=== PATIENT | female | born 1930 | race Caucasian/White ===

== ENCOUNTER 2016-06-13 14:40 | Outpatient (CLI) | payer OTHER ==
[2016-01-23 07:52] VITALS: BP 198/116
== END 2016-06-13 14:42 ==
LOC: CARD 14:40
PROVIDERS: ATTEND Internal Medicine Cardiovascular Disease
DX: I50.9 Heart failure, unspecified (principal)
CPT/HCPCS: G0463

== ENCOUNTER 2016-08-16 10:50 | Outpatient (CLI) | payer OTHER ==
[2016-01-23 07:52] VITALS: BP 198/116
== END 2016-08-16 10:52 ==
LOC: POD 10:50
PROVIDERS: ATTEND Podiatrist Public Medicine
DX: B35.1 Tinea unguium (principal); L84 Corns and callosities; L60.0 Ingrowing nail; M79.674 Pain in right toe(s); M79.675 Pain in left toe(s)
CPT/HCPCS: 11721; G0463

== ENCOUNTER 2016-12-06 11:05 | Outpatient (CLI) | payer OTHER ==
[2016-01-23 07:52] VITALS: BP 198/116
== END 2016-12-06 11:06 ==
LOC: POD 11:05
PROVIDERS: ATTEND Podiatrist Public Medicine
DX: L84 Corns and callosities (principal); B35.1 Tinea unguium; L60.0 Ingrowing nail; M79.675 Pain in left toe(s); M79.674 Pain in right toe(s)
CPT/HCPCS: 11721; G0463

== ENCOUNTER 2016-12-12 13:13 | Outpatient (CLI) | payer OTHER ==
[2016-01-23 07:52] VITALS: BP 198/116
== END 2016-12-12 13:14 ==
LOC: CARD 13:13
PROVIDERS: ATTEND Internal Medicine Cardiovascular Disease
DX: I50.9 Heart failure, unspecified (principal); I10 Essential (primary) hypertension; R07.89 Other chest pain
CPT/HCPCS: G0463

== ENCOUNTER 2017-04-04 10:56 | Outpatient (CLI) | payer OTHER ==
[2016-01-23 07:52] VITALS: BP 198/116
== END 2017-04-04 10:57 ==
LOC: POD 10:56
PROVIDERS: ATTEND Podiatrist Public Medicine
DX: B35.1 Tinea unguium (principal); L84 Corns and callosities; L60.0 Ingrowing nail; M79.674 Pain in right toe(s); M79.675 Pain in left toe(s)
CPT/HCPCS: 11721; G0463

== ENCOUNTER 2017-07-11 10:57 | Outpatient (CLI) | payer OTHER ==
[2016-01-23 07:52] VITALS: BP 198/116
== END 2017-07-11 11:00 ==
LOC: POD 10:57
PROVIDERS: ATTEND Podiatrist Public Medicine
DX: B35.1 Tinea unguium (principal); L84 Corns and callosities; L60.0 Ingrowing nail; M79.674 Pain in right toe(s); M79.675 Pain in left toe(s)
CPT/HCPCS: 11721; G0463

== ENCOUNTER 2017-10-24 10:48 | Outpatient (CLI) | payer OTHER ==
[2016-01-23 07:52] VITALS: BP 198/116
== END 2017-10-24 10:50 ==
LOC: POD 10:48
PROVIDERS: ATTEND Podiatrist Public Medicine
DX: B35.1 Tinea unguium (principal); L84 Corns and callosities; L60.0 Ingrowing nail; M79.674 Pain in right toe(s); M79.675 Pain in left toe(s)
CPT/HCPCS: 11721; G0463

== ENCOUNTER 2017-10-30 11:25 | Outpatient (CLI) | payer OTHER ==
[2016-01-23 07:52] VITALS: BP 198/116
== END 2017-10-30 11:26 ==
LOC: CARD 11:25
PROVIDERS: ATTEND Internal Medicine Cardiovascular Disease
DX: I50.9 Heart failure, unspecified (principal); I10 Essential (primary) hypertension
CPT/HCPCS: G0463